=== PATIENT | female | born 1985 | race Caucasian/White ===

== ENCOUNTER 2016-05-16 09:42 | Outpatient (CLI) | payer SELFPAY | END 2016-05-16 09:43 | disposition home or self-care (01) | DX: Z02.81 Encounter for paternity testing (principal) ==

== ENCOUNTER 2016-12-28 10:56 | Emergency (ER) | payer MEDICAID ==
[2016-12-28 11:11] VITALS: BP 119/82
[2016-12-28 11:41] LABS: RAPID STREP SCREEN REAGENT QC YELLOW (YELLOW)
--- NOTE | 2016-12-28 12:22 | ED Physician Documentation ---
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 denies preg breast feeding Review of Systems Constitutional: denies: Fever, Chills Throat: reports: Sore throat GI: denies: Abdominal Pain : denies: Now [facility] PD PAST MEDICAL HISTORY - Past Medical History Past Medical History: No - Past Surgical History Past Surgical History: Yes - Present Medications Home Medications: Ambulatory Orders Medication Instructions Recorded Confirmed Penicillin Vk 500 mg PO Q8H 10 Days tablet 12/28/16 - Allergies Allergies/Adverse Reactions: Allergies Allergy/AdvReac Type Severity Reaction Status Date / Time No Known Drug Allergies Allergy Verified 12/28/16 11:11 - Social History Does the pt smoke?: No Smoking Status: Never smoker Does the pt drink ETOH?: No Does the pt have substance abuse?: No - Immunizations Immunizations are current?: Yes - POLST Patient has POLST: No PD ED PE NORMAL - Vitals Vital signs reviewed: Yes - General General: Alert and oriented X 3 - HEENT HEENT: PERRL. No: Pharynx benign (erythema and exudate on the R) - Neck Neck: Supple, no meningeal sign. No: No adenopathy (anterior) - Cardiac Cardiac: RRR - Respiratory Respiratory: No respiratory distress, Clear bilaterally Results - Vitals Vitals: Vital Signs - 24 hr 12/28/16 11:09 Temperature 36.5 C Heart Rate 92 Respiratory 16 Rate Blood Pressure 119/82 H O2 Saturation 98 Oxygen O2 Source Room air - Labs Labs: Laboratory Tests 12/28/16 11:05 Group A Strep Rapid Negative PD MEDICAL DECISION MAKING - ED course ED course: rapid strep neg but meets centor criteria Departure - Departure Disposition: 01 Home, Self Care Clinical Impression: Exudative pharyngitis Condition: Good Instructions: ED Strep Pharyngitis Poss Prescriptions: Penicillin Vk 500 mg PO Q8H 10 Days tablet Comments: The rapid strep test was neg but you meet 3/4 clinical criteria for strep throat so I have prescribed penicillin which is compatible with breast feeding You can start the antibiotic now or alternatively, if you prefer, you could wait for the actual throat culture to be resulted in three days and only take the antibiotic if it is positive
== END 2016-12-28 12:37 | disposition home or self-care (01) ==
LOC: ED 10:56
DX: J02.9 Acute pharyngitis, unspecified (principal)
CPT/HCPCS: 87070; 87430; 99283